=== PATIENT | male | born 1955 | race Caucasian/White ===

== ENCOUNTER → 2017-01-23 | Outpatient (CLI) | payer OTHER | LOC: CIMAGING 14:03 → EDSTATUS 14:03 → CIMAGING 14:04 | PROVIDERS: ATTEND Internal Medicine | DX: M51.45 Schmorl's nodes, thoracolumbar region (principal); N20.0 Calculus of kidney; M54.5 Low back pain; M12.9 Arthropathy, unspecified | CPT/HCPCS: 72100-PO ==